=== PATIENT | male | born 1990 | race Caucasian/White ===

== ENCOUNTER 2019-07-24 14:32 | Emergency (ER) | payer SELFPAY ==
--- NOTE | 2019-07-24 14:39 | EDM.PDOC ---
ED HPI GENERAL MEDICAL PROBLEM - General Chief Complaint: Respiratory Problem Stated Complaint: SOB,CHEST DISCOMFORT,COUGH Time Seen by Provider: 07/24/19 14:36 Source of Information: Reports: Patient History Limitations: Reports: No Limitations - History of Present Illness INITIAL COMMENTS - FREE TEXT/NARRATIVE: HISTORY AND PHYSICAL: History of present illness: Patient is a 28-year-old male who presents to the emergency room today with complaints of cough and shortness of breath 1 week. He states he has been coughing so frequently and hard he now has chest pain when he coughs. Patient is a daily smoker. Denies any previous history of lung illnesses. Patient denies any fever, chills, headache, change in vision, syncope or near syncope. Denies any chest pain, back pain, or neck pain/stiffness. Denies any abdominal pain, nausea, vomiting, diarrhea, constipation or dysuria. Has not noted any blood in urine or stool. Patient has been eating and drinking appropriately. Review of systems: As per history of present illness and below otherwise all systems reviewed and negative. Past medical history: As per history of present illness and as reviewed below otherwise noncontributory. Surgical history: As per history of present illness and as reviewed below otherwise noncontributory. Social history: See social history for further information Family history: As per history of present illness and as reviewed below otherwise noncontributory. Physical exam: General: Well-developed and well-nourished 28-year-old male. Alert and oriented. Nontoxic appearing and in no acute distress. HEENT: Atraumatic, normocephalic, pupils equal and reactive bilaterally, negative for conjunctival pallor or scleral icterus, mucous membranes moist, TMs normal bilaterally, throat clear, neck supple, nontender, trachea midline. No drooling or trismus noted. No meningeal signs. No hot potato voice noted. Lungs: Clear to auscultation, breath sounds equal bilaterally, chest nontender. Dry nonproductive cough noted. Heart: S1S2, regular rate and rhythm without overt murmur Abdomen: Soft, nondistended, nontender. Negative for masses or hepatosplenomegaly. Negative for costovertebral tenderness. Pelvis: Stable nontender. Skin: Intact, warm, dry. No lesions or rashes noted. Extremities: Atraumatic, moves all extremities per self without difficulty or deficits, negative for cords or calf pain. Neurovascular unremarkable. Neuro: Awake, alert, oriented. Cranial nerves II through XII unremarkable. Cerebellum unremarkable. Motor and sensory unremarkable throughout. Exam nonfocal. Notes: Diagnostics are unremarkable. Due to patient's history of smoking and longevity of symptoms and will cover for atypical pneumonia. Supportive care measures were reviewed and discussed. Voices understanding and is agreeable to plan of care. Denies any further questions or concerns at this time. Diagnostics: Influneza, CXR Therapeutics: None Prescription: Zpak Pro-Air Impression: Bronchitis Plan: 1. Stop smoking 2. Take antibiotic as directed. 3. Follow up with PCP as we discussed. Return to the ED as needed and as discussed. Definitive disposition and diagnosis as appropriate pending reevaluation and review of above. throat Pain Score (Numeric/FACES): 7 - Related Data Allergies Allergy/AdvReac Type Severity Reaction Status Date / Time Penicillins Allergy Rash Verified 07/24/19 14:41 Home Meds: Home Meds . [No Known Home Meds] 07/24/19 [History] ED ROS GENERAL - Review of Systems Review Of Systems: Comprehensive ROS is negative, except as noted in HPI. ED EXAM, GENERAL - Physical Exam Exam: See Below (See dictation) Course - Vital Signs Last Recorded V/S: Last Vital Signs Temp 96.9 F 07/24/19 14:41 Pulse 88 07/24/19 14:41 Resp 18 07/24/19 14:41 BP 125/59 L 07/24/19 14:41 Pulse Ox 97 07/24/19 14:41 - Orders/Labs/Meds Orders: Active Orders 24 hr Category Date Time Status Chest 2V [CR] Stat Exams 07/24/19 14:36 Taken Departure - Departure Time of Disposition: 15:19 Disposition: Home, Self-Care 01 Clinical Impression: Bronchitis - Discharge Information Instructions: Acute Bronchitis, Adult, [id number] Forms: ED Department Discharge Additional Instructions: The following information is given to patients seen in the emergency department who are being discharged to home. This information is to outline your options for follow-up care. We provide all patients seen in our emergency department with a follow-up referral. The need for follow-up, as well as the timing and circumstances, are variable depending upon the specifics of your emergency department visit. If you don't have a primary care physician on staff, we will provide you with a referral. We always advise you to contact your personal physician following an emergency department visit to inform them of the circumstance of the visit and for follow-up with them and/or the need for any referrals to a consulting specialist. The emergency department will also refer you to a specialist when appropriate. This referral assures that you have the opportunity for follow-up care with a specialist. All of these measure are taken in an effort to provide you with optimal care, which includes your follow-up. Under all circumstances we always encourage you to contact your private physician who remains a resource for coordinating your care. When calling for follow-up care, please make the office aware that this follow-up is from your recent emergency room visit. If for any reason you are refused follow-up, please contact the [facility] Emergency Department at and asked to speak to the emergency department charge nurse. [facility] [address] [place] [id number] [facility] [address] [place] [address] 1. Stop smoking 2. Take antibiotic as directed. 3. Follow up with PCP as we discussed. Return to the ED as needed and as discussed. - My Orders Last 24 Hours: My Active Orders 07/24/19 14:36 Chest 2V [CR] Stat - Assessment/Plan Last 24 Hours: My Active Orders 07/24/19 14:36 Chest 2V [CR] Stat
--- NOTE | 2019-07-24 15:36 | CR ---
INDICATION: Pt w/cough. COMPARISON: None available. FINDINGS: PA and lateral views of the chest demonstrate adequate inflation of the lungs. No focal airspace consolidation, pneumothorax or effusion. Cardiomediastinal silhouette is within normal limits. There are no acute osseous findings. IMPRESSION: No acute cardiopulmonary findings. Dictated by Bakari Langford MD @ 07/24/2019 3:34:42 PM Dictated by: Bakari Langford MD @ 07/24/2019 15:34:49 (Electronically Signed)
== END 2019-07-24 15:51 | disposition home or self-care (01) ==
LOC: MW.ED 14:32
DX: J40 Bronchitis, not specified as acute or chronic (principal); Z88.0 Allergy status to penicillin
CPT/HCPCS: 71046; 71046-26; 87804; 99283; 99285-25